=== PATIENT | female | born 1980 | race Caucasian/White ===

== ENCOUNTER 2021-12-27 10:47 | Emergency (ER) | payer MEDICARE, OTHER ==
[2021-12-27 11:55] LABS: HEMOGLOBIN 13.5 gm/dl (12.3-15.3); RED BLOOD COUNT 4.8 M/UL (4.00-5.10); WHITE BLOOD COUNT 10.6 K/UL (4.5-11.0)
[2021-12-27 12:41] LABS: BUN/CREATININE RATIO 16 (0-10)
== END 2021-12-27 16:10 | disposition home or self-care (01) ==
LOC: ER1 10:47
PROVIDERS: Physician Assistant Medical
DX: I10 Essential (primary) hypertension (principal); R07.9 Chest pain, unspecified; E78.5 Hyperlipidemia, unspecified; F17.210 Nicotine dependence, cigarettes, uncomplicated
CPT/HCPCS: 70450; 71045; 80053; 81001; 82550; 82553; 84439; 84443; 84484; 85025; 93005; 99285